=== PATIENT | male | born 1935 | race Caucasian/White ===

== ENCOUNTER 2017-08-24 14:34 | Observation (INO) ==
[2017-08-24] MEDS ORDERED: Naloxone 0.4 MG/ML INJ IVP PRN (19:05)
--- NOTE | 2017-08-24 19:12 | Internal Med History&Physical ---
<Christopher Hall J - Last Filed: 08/24/17 19:07> Date of Encounter: 08/24/17 Time of Encounter: 19:07 Assessment and Plan (1) COPD (chronic obstructive pulmonary disease) Current visit: Yes Status: Acute Appears to be having acute exacerbation of COPD. He was diagnosed with COPD from his PCP but has never had formal pulmonary pathology workup. 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 Reporting progressive shortness of breath for the last month. This appears to be impacting his daily activities, and limiting his functional capacity. My assessment reveals diminished lung sounds with limited air movement, and wheezing bilateral posterior lobes. RRR, S1, S2, remains hemodynamically stable in no respiratory distress resting comfortably on room air, however does appear little dyspneic with ambulation. Pulmonology consult for further assessment and recommendations Solu-Medrol every 8 hours IV push as the patient is wheezing I am additionally adding bronchodilators every 4 hours scheduled Continuous telemetry, continuous SPO2 Serial troponin, TTE to rule out cardiac cause BNP now, chest x-ray now CBC and BMP Qualifiers: COPD type: chronic bronchitis Chronic bronchitis type: unspecified Qualified Code(s): J42 - Unspecified chronic bronchitis (2) Hypoxia Current visit: Yes Status: Acute Was hypoxic at [facility] with ambulation. See plan above (3) HTN (hypertension) Current visit: Yes Status: Acute History of essential hypertension. Review of blood pressure well at [facility] reveals elevated systolic blood pressure. Multiple readings greater than 150 systolic. However, at this time. He remained stable. Continue lisinopril hydrochlorothiazide at home dose. Continue to trend blood pressure and add adjunct therapy as needed Qualifiers: Hypertension type: essential hypertension Qualified Code(s): I10 - Essential (primary) hypertension (4) HLD (hyperlipidemia) Current visit: Yes Status: Acute Continue atorvastatin at home dose Qualifiers: Hyperlipidemia type: pure hypercholesterolemia Qualified Code(s): E78.00 - Pure hypercholesterolemia, unspecified; E78.0 - Pure hypercholesterolemia (5) DVT prophylaxis Current visit: Yes Status: Acute Heparin 5000 units SC twice a day Internal Medicine - H&P: HPI Chief complaint: Dyspnea Admitted From: Home Plans for Post Hospital Care: Home History of present illness: Mr. Townsend is a 82 year old male PMH of emphysema, COPD, HTN, HLD. Patient reports he has no cardiac history. Presents as a transfer from [facility]. Patient has concerns for increasing shortness of breath at rest which worsens with exertion for approximately one month. During this time he does admit to a dry nonproductive cough but denies any other URI symptoms. Denies fever, chills, night sweats, chest pain, abdominal pain, lower extremity swelling or pain. However, he does admit to some weight loss and parosmia. He was hypoxic upon arrival at [facility] and had a workup which included CTA chest x-ray, troponin and EKG which were all unremarkable. There initially were going to send him home, but they had him ambulate prior to discharge on room air and he became hypoxic. The patient denies having any formal pulmonology evaluation or any recent cardiac workup. Past Med Surg Social Fam HX - Past Medical History Medical history: COPD, hyperlipidemia, hypertension Psychiatric history: anxiety - Social History Smoking Status: Former smoker Packs per day: 1 Smokeless Tobacco Status: No Alcohol use: none Drug use: none - Family History Father Living Status: Age at : 94 Cause of : "old age" Mother Hx Family Endocrine Disorder: Yes (Diabetes) Internal Medicine - H&P: Meds Aspirin [Lo-Dose Aspirin EC] 81 mg PO DAILY 08/24/17 [History] Atorvastatin [Lipitor] 20 mg PO HS 08/24/17 [History] Lisinopril-HCTZ 20-12.5 [Prinzide 20-12.5] 1 tab PO DAILY 08/24/17 [History] 3 Allergy/AdvReac Type Severity Reaction Status Date / Time No Known Allergies Allergy Verified 08/25/17 12:59 All Systems PM: A 10-system review of systems was performed and is negative for pertinent findings except as documented above in the HPI. - Constitutional Constitutional: no chills, no fever(s), no night sweats - EENT Eyes: no change in vision, no discharge, no pain, no photophobia Ears: no ear discharge, no ear pain, no tinnitus Nose, mouth and throat: no dysphagia, no nasal discharge, no neck pain, no sore throat - Cardiovascular Cardiovascular ROS IM: dyspnea, no chest pain, no diaphoresis, no lightheadedness, no palpitations, no syncope - Respiratory Respiratory: dyspnea, no cough, no wheezing, no excessive phlegm production - Gastrointestinal Gastrointestinal: no abdominal pain, no diarrhea, no hematemesis, no hematochezia, no melena, no nausea, no vomiting - Musculoskeletal Musculoskeletal ROS IM: no numbness, no tingling - Integumentary Integumentary IM: no rash, no unusual bruising - Neurological Neurological ROS: no confusion, no convulsions, no focal weakness, no numbness, no tingling, no tremor(s) - Hematologic/Lymphatic Hematologic/Lymphatic: no easy bruising - Head Head exam: Present: atraumatic, normocephalic - Eye Eye exam: Present: PERRL, conjuntiva pink, sclera anicteric Pupils: Present: PERRL - Neck Neck exam general surgery: Present: supple, trachea midline. Absent: lymphadenopathy - Respiratory Respiratory exam: Present: decreased breath sounds, CTAB, prolonged expiratory phase, wheezes (Bilateral posterior lobes). Absent: accessory muscle use, chest wall tenderness, rales, respiratory distress, rhonchi, tachypnea - Cardiovascular Cardiovascular exam: Present: RRR, +S1, +S2. Absent: diastolic murmur, gallop, rubs, systolic murmur - GI/Abdominal GI/Abdominal exam: Present: normal bowel sounds, soft, no peritoneal signs. Absent: distended, tenderness - Extremities Exam Extremities exam: Present: warm, radial pulses palpable and symmetrical. Absent : calf tenderness, cyanotic, pedal edema - Neurological Exam Neurological exam: Present: CN II-XII intact, oriented X3, no focal deficits. Absent: pronater drift, facial droop, speech deficit - Skin Skin exam: Present: dry, intact Internal Med - H&P Results - Diagnostic Studies CT scan - chest Status: image reviewed by me Additional comments: Centrilobular emphysema, no lymphadenopathy noted, no additional cardiopulmonary abnormalities noted <Rosie Last - Last Filed: 08/25/17 13:26> Date of Encounter: 08/25/17 Internal Medicine - H&P: HPI History of present illness: Mr. Townsend is a 82 year old male All Systems PM: A 10-system review of systems was performed and is negative for pertinent findings except as documented above in the HPI. - Constitutional Vitals: Temp Pulse Resp BP Pulse Ox 98.2 F 70 16 126/58 97 08/25/17 10:42 08/25/17 10:42 08/25/17 10:42 08/25/17 10:42 08/25/17 10:42 Internal Med - H&P Results - Labs CBC & Chem 7: 08/25/17 03:13 08/25/17 03:13 Labs: Short CBC 08/25/17 Range/Units 03:13 WBC 7.2 (4.3-11.1) K/mcL Hgb 10.7 L (12.9-16.9) g/dL Hct 33.4 L (37.5-50.1) % Plt Count 205 (140-400) K/mcL Neutrophils # 5.1 (1.6-8.9) K/mcL BMP 08/25/17 03:13 Sodium 137 Potassium 4.1 Chloride 105 Carbon Dioxide 25 BUN 19 Creatinine 0.92 Glucose 97 Calcium 9.6 Cardiac Enzymes 08/24/17 08/25/17 Range/Units 19:01 04:55 Troponin I 0.01 0.01 (0-0.03) ng/mL Liver Function 08/25/17 Range/Units 03:13 Total Bilirubin 0.6 (0.2-1.2) mg/dL AST 16 (5-34) Units/L ALT 15 (0-55) Units/L Alkaline Phosphatase 58 (38-126) Units/L Albumin 3.7 (3.5-5.0) g/dL - Impressions ITS Impressions Chest X-Ray 08/24/17 18:53 IMPRESSION: Similar findings suggesting emphysema. No focal airspace consolidation or pulmonary vascular congestion. D/ / Jasiel Covarrubias / Jasiel Covarrubias Interpreting Provider: Jasiel Covarrubias - Attending Attestation I examined this patient and my medical decision-making was reviewed with the Resident Physician. I agree with the documented findings, disposition and treatment plan as described except to the extent set forth below.
[2017-08-24] MEDS ORDERED: Ipratropium/Albuterol Neb 3 ML ONE (19:44)
[2017-08-24] MEDS: Ipratropium/Albuterol Neb 3 ML IH SCH ×2 (20:39→23:47)
[2017-08-24] MEDS: Aspirin 81 MG TAB.CHEW PO SCH (21:51)
[2017-08-25] MEDS: Ipratropium/Albuterol Neb 3 ML IH SCH ×6 (03:32→23:48)
[2017-08-25 04:20] LABS: Basophils % 0.6 %; Eosinophils # 0.2 K/mcL (0.0-0.6); Eosinophils % 3.2 %; Hematocrit 33.4 % (37.5-50.1); Hemoglobin 10.7 g/dL (12.9-16.9); Immature Granulocytes % 0.1 % (0-4); Lymphocytes # 1.2 K/mcL (0.6-4.6); Mean Corpuscular Hemoglobin 29.2 pg (28.0-33.3); Mean Platelet Volume 10.5 fL (9.4-12.4); Monocytes # 0.7 K/mcL (0.0-1.3); Monocytes % 9.3 %; Neutrophils # 5.1 K/mcL (1.6-8.9); Platelet Count 205 K/mcL (140-400); Red Blood Count 3.67 M/mcL (4.19-5.50); Red Cell Distribution Width 13.2 % (11.5-14.5); Segmented Neutrophils % 70.8 %
[2017-08-25 04:39] LABS: Alanine Aminotransferase 15 Units/L (0-55); Albumin 3.7 g/dL (3.5-5.0); Albumin/Globulin Ratio 1.1 (1.1-2.2); Alkaline Phosphatase 58 Units/L (38-126); Aspartate Amino Transferase 16 Units/L (5-34); BUN/Creatinine Ratio 21 (6-26); Bilirubin,Total 0.6 mg/dL (0.2-1.2); Blood Urea Nitrogen 19 mg/dL (8-26); Calcium 9.6 mg/dL (8.6-10.8); Carbon Dioxide 25 mEq/L (19-29); Chloride 105 mEq/L (98-109); Globulin 3.4 g/dL (2.4-3.5); Glucose 97 mg/dL (70-99); Osmolality,Calculated 286 (280-300); Potassium 4.1 mEq/L (3.5-4.5); Sodium 137 mEq/L (136-145); Total Protein 7.1 g/dL (6.0-8.3); eGFR For African Americans > 60 (> 60); eGFR For Non-African Americans > 60 (> 60)
[2017-08-25] MEDS: *HR* Heparin 5,000 UNIT/ML VIAL SQ SCH ×2 (05:05→16:47)
[2017-08-25] MEDS: Lisinopril-HCTZ 20-12.5mg TABLET PO SCH (08:38)
[2017-08-25] MEDS: Aspirin 81 MG TAB.CHEW PO SCH (08:38)
[2017-08-25] MEDS ORDERED: Chloraseptic Spray 177 ML BOTTLE MM PRN (09:39)
--- NOTE | 2017-08-25 10:34 | Pulmonology Consult Note ---
Date of Encounter: 08/25/17 Time of Encounter: 09:50 Assessment and Plan (1) COPD with exacerbation Current Visit: Yes Status: Acute This is a pleasant gentleman who is presenting with worsening dyspnea and according to him he was not on any bronchodilators and is never been diagnosed with COPD is feeling better now with current treatment. His chest x-ray and with his history this is very suggestive of COPD exacerbation and is on appropriate treatment with systemic steroids and bronchodilators and I added Symbicort to his treatment. Patient is to be evaluated for oxygen with 6 minute walk before his discharge. I feel his IV steroids can be transitioned to oral and can be discharged home and follow-up as outpatient in about 4-6 weeks. Patient will need pulmonary function test as outpatient and they believe pulmonary rehabilitation will be very useful for him. Thank very much for consultation. History of Present Illness Consult date: 08/25/17 Requesting physician: Christopher Hall Reason for consult: COPD Chief complaint: Dyspnea History of present illness: This is a pleasant 82-year-old male with significant history of smoking who was transferred from [facility] due to dyspnea. Patient stated he was never diagnosed with COPD and he is not on oxygen or inhalers. Patient stated he has worsening of his dyspnea at rest and exertion for about one month now and he also has nonproductive cough and wheezing. Patient never had pulmonary function tests according to him. Patient had a chest x-ray done which was suggestive of emphysema. Patient was found to be hypoxic and had workup done with CTA at [place] and I am not able to review dose images at this time. Past Med Surg Social Fam HX - Past Medical History Medical history: COPD, hyperlipidemia, hypertension Psychiatric history: anxiety - Social History Smoking Status: Former smoker Packs per day: 1 Smokeless Tobacco Status: No Alcohol use: none Drug use: none - Family History Father Living Status: Age at : 94 Cause of : "old age" Mother Hx Family Endocrine Disorder: Yes (Diabetes) Medications and Allergies Aspirin [Lo-Dose Aspirin EC] 81 mg PO DAILY 08/24/17 [History] Atorvastatin [Lipitor] 20 mg PO HS 08/24/17 [History] Lisinopril-HCTZ 20-12.5 [Prinzide 20-12.5] 1 tab PO DAILY 08/24/17 [History] 3 Allergy/AdvReac Type Severity Reaction Status Date / Time No Known Allergies Allergy Verified 08/24/17 18:17 All Systems: A 10-system review of systems was performed and is negative for pertinent findings except as documented above in the HPI. Physical Examination Vital Signs: Vital Signs, Last 4 Hours Resp Pulse Ox 08/25/17 08:10 16 98 Please refer to the nursing notes regarding complete vital signs. General appearance: no acute distress Eyes: nonicteric ENT: oropharynx moist Mallampati (class): 2 Neck: supple, no lymphadenopathy Effort: normal Inspection: hyperextended Auscultation: bilateral: diminished breath sounds, egophony Percussion: bilateral: not dull Cardiovascular: regular rate and rhythm Gastrointestinal: normoactive bowel sounds, non-distended Extremities: no cyanosis, no edema normal mental status, non-focal exam mood appropriate Results - Laboratory Findings CBC and BMP: 08/25/17 03:13 08/25/17 03:13 Abnormal lab findings: Abnormal lab results RBC 3.67 M/mcL (4.19-5.50) L 08/25/17 03:13 Hgb 10.7 g/dL (12.9-16.9) L 08/25/17 03:13 Hct 33.4 % (37.5-50.1) L 08/25/17 03:13 - Diagnostic Findings Chest x-ray: report reviewed, image reviewed - Clinical Findings Intake & Output: Intake & Output 08/24/17 08/25/17 08/25/17 23:59 07:59 15:59 Intake Total 240 / 240 Balance 240 / 240 Weight 69.082 kg Consult Discharge Plan - Plan Referrals: Teofilo Salas ELECTROMECHANICAL ENGINEER [Primary Care Provider] -
[2017-08-25] MEDS: Budesonide/Formoterol 160/4.5 MDI IH SCH ×2 (11:37→20:17)
[2017-08-25] MEDS ORDERED: MethylPREDNISolone 40 MG/ML VIAL IVP SCH ×2 (12:32→21:00)
--- NOTE | 2017-08-25 12:32 | Internal Med Progress Note ---
Date of Encounter: 08/25/17 Time of Encounter: 12:20 - Assessment and plan (1) COPD with exacerbation Current Visit: Yes Status: Acute Assessment and plan: Continue systemic steroids bronchodilator support pulm on board and consultation appreciated O2 supplementation will need O2 qualification testing prior to discharge f/u 2D echo to rule out any cardiac etiology contributing to his presentation monitor O2 sat, o2 sat goal: 88-92% (2) HTN (hypertension) Current Visit: Yes Status: Chronic Assessment and plan: BP within acceptable range continue home meds Qualifiers: Hypertension type: essential hypertension Qualified Code(s): I10 - Essential (primary) hypertension (3) HLD (hyperlipidemia) Current Visit: Yes Status: Chronic Assessment and plan: continue statin therapy Qualifiers: Hyperlipidemia type: pure hypercholesterolemia Qualified Code(s): E78.00 - Pure hypercholesterolemia, unspecified; E78.0 - Pure hypercholesterolemia (4) DVT prophylaxis Current Visit: Yes Status: Acute Assessment and plan: Heparin SQ - Subjective Interval history: Patient seen and examined with family present at bedside. Pt reports of being in no distress at rest however even with minimal ambulation without the oxygen he is in significant respiratory distress. Reports of not smoking for the last 3 weeks, however has history of smoking over 1ppd x 60+ years. - Constitutional Vitals: Temp Pulse Resp BP Pulse Ox 98.2 F 70 16 126/58 97 08/25/17 10:42 08/25/17 10:42 08/25/17 10:42 08/25/17 10:42 08/25/17 10:42 General appearance: Present: cooperative, A&O X 3, no acute distress, answers questions appropriately - Head Head exam: Present: atraumatic, normocephalic - Eye Eye exam: Present: conjuntiva pink, sclera anicteric - Respiratory Respiratory exam: Present: decreased breath sounds. Absent: accessory muscle use, respiratory distress, wheezes, tachypnea - Cardiovascular Cardiovascular exam: Present: RRR, +S1, +S2. Absent: diastolic murmur, gallop, rubs, systolic murmur - GI/Abdominal GI/Abdominal exam: Present: normal bowel sounds, soft, no peritoneal signs. Absent: distended, tenderness - Extremities Exam Extremities exam: Present: warm, radial pulses palpable and symmetrical. Absent : calf tenderness, cyanotic, pedal edema - Neurological Exam Neurological exam: Present: alert, oriented X3 - Psychiatric Psychiatric exam: Present: normal affect, normal mood Internal Medicine: Result - Labs CBC & Chem 7: 08/25/17 03:13 08/25/17 03:13 Labs: Short CBC 08/25/17 Range/Units 03:13 WBC 7.2 (4.3-11.1) K/mcL Hgb 10.7 L (12.9-16.9) g/dL Hct 33.4 L (37.5-50.1) % Plt Count 205 (140-400) K/mcL Neutrophils # 5.1 (1.6-8.9) K/mcL BMP 08/25/17 03:13 Sodium 137 Potassium 4.1 Chloride 105 Carbon Dioxide 25 BUN 19 Creatinine 0.92 Glucose 97 Calcium 9.6 Cardiac Enzymes 08/24/17 08/25/17 Range/Units 19:01 04:55 Troponin I 0.01 0.01 (0-0.03) ng/mL Liver Function 08/25/17 Range/Units 03:13 Total Bilirubin 0.6 (0.2-1.2) mg/dL AST 16 (5-34) Units/L ALT 15 (0-55) Units/L Alkaline Phosphatase 58 (38-126) Units/L Albumin 3.7 (3.5-5.0) g/dL - Impressions Impressions Chest X-Ray 08/24/17 18:53 IMPRESSION: Similar findings suggesting emphysema. No focal airspace consolidation or pulmonary vascular congestion. D/ / Jasiel Covarrubias / Jasiel Covarrubias Interpreting Provider: Jasiel Covarrubias Consult Discharge Plan - Plan Referrals: Teofilo Salas PROJECT SPECIALIST [Primary Care Provider] -
[2017-08-25] MEDS: MethylPREDNISolone 40 MG/ML VIAL IVP SCH (13:11)
[2017-08-26] MEDS: MethylPREDNISolone 40 MG/ML VIAL IVP SCH (00:17)
[2017-08-26] MEDS: Ipratropium/Albuterol Neb 3 ML IH SCH ×4 (04:17→15:50)
[2017-08-26 04:33] LABS: Basophils % 0.1 %; Hematocrit 33.1 % (37.5-50.1); Hemoglobin 10.4 g/dL (12.9-16.9); Immature Granulocytes % 0.6 % (0-4); Lymphocytes # 0.4 K/mcL (0.6-4.6); Lymphocytes % 2.9 %; Mean Corpuscular HGB Conc 31.4 g/dL (31.6-35.5); Mean Corpuscular Hemoglobin 28.3 pg (28.0-33.3); Mean Corpuscular Volume 89.9 fL (83.0-100.0); Mean Platelet Volume 10.5 fL (9.4-12.4); Monocytes % 1.2 %; Platelet Count 228 K/mcL (140-400); Red Blood Count 3.68 M/mcL (4.19-5.50); Red Cell Distribution Width 13.2 % (11.5-14.5); Segmented Neutrophils % 95.2 %
[2017-08-26 04:34] LABS: Monocytes # 0.1 K/mcL (0.0-1.3); Neutrophils # 11.4 K/mcL (1.6-8.9)
[2017-08-26] MEDS: *HR* Heparin 5,000 UNIT/ML VIAL SQ SCH (05:16)
[2017-08-26 05:20] LABS: BUN/Creatinine Ratio 28 (6-26); Carbon Dioxide 20 mEq/L (19-29); Chloride 105 mEq/L (98-109); Potassium 4.3 mEq/L (3.5-4.5); Sodium 135 mEq/L (136-145); eGFR For African Americans > 60 (> 60)
[2017-08-26 05:21] LABS: Calcium 9.3 mg/dL (8.6-10.8); Glucose 155 mg/dL (70-99); Magnesium 2.1 mg/dL (1.6-2.6); Osmolality,Calculated 290 (280-300); Phosphorous 3.9 mg/dL (2.3-4.7); eGFR For Non-African Americans > 60 (> 60)
[2017-08-26 05:22] LABS: Blood Urea Nitrogen 31 mg/dL (8-26)
[2017-08-26] MEDS: Budesonide/Formoterol 160/4.5 MDI IH SCH (07:57)
--- NOTE | 2017-08-26 08:34 | Pulmonology Progress Note ---
Date of Encounter: 08/26/17 Time of Encounter: 08:30 Assessment and Plan (1) COPD with exacerbation Status: Acute Patient is almost back to baseline , patient has qualified for home O2 told him we will reassess him for exercise O2 needs when he comes to the clinic in 6 weeks . Spoke with Nurse to walk him before send him home . COMPREHENSIVE ADVISOR working Home O2 for discharge send him home on steroid taper , GURPREET prn and ICS/LABA follow up in Pulmonary in 6 weeks . Patient verbalized understanding. Subjective Principal diagnosis: COPD exacerbation Interval history: 82 year old male is here COPD exacerbation patient says he is back to his baseline he is doing lot better wants to go home today ,he qualified for home O2 , his cough and sputum production , denies any chest pain or tightness . Objective PUL Vital signs: Last Vital Signs Temp 98.2 F 08/26/17 06:44 Pulse 72 08/26/17 06:44 Resp 18 08/26/17 07:58 BP 161/68 08/26/17 06:44 Pulse Ox 93 08/26/17 07:58 Auscultation: bilateral: clear Results - Laboratory Findings CBC and BMP: 08/26/17 04:00 08/26/17 04:00 Abnormal lab findings: Abnormal lab results WBC 12.0 K/mcL (4.3-11.1) H D 08/26/17 04:00 RBC 3.68 M/mcL (4.19-5.50) L 08/26/17 04:00 Hgb 10.4 g/dL (12.9-16.9) L 08/26/17 04:00 Hct 33.1 % (37.5-50.1) L 08/26/17 04:00 MCHC 31.4 g/dL (31.6-35.5) L 08/26/17 04:00 Neutrophils # 11.4 K/mcL (1.6-8.9) H 08/26/17 04:00 Lymphocytes # 0.4 K/mcL (0.6-4.6) L 08/26/17 04:00 Sodium 135 mEq/L (136-145) L 08/26/17 04:00 BUN 31 mg/dL (8-26) H D 08/26/17 04:00 BUN/Creatinine Ratio 28 (6-26) H 08/26/17 04:00 Glucose 155 mg/dL (70-99) H 08/26/17 04:00 - Clinical Findings Intake & Output: Intake & Output 08/25/17 08/26/17 08/26/17 23:59 07:59 15:59 Output Total 350 / 350 200 / 200 Balance -350 / -350 -200 / -200 Weight 69.804 kg Consult Discharge Plan - Plan Instructions: Prednisone (By mouth), Using Oxygen at Home (DC), Chronic Obstructive Pulmonary Disease (DC), Chronic Hypertension (DC) Additional Instructions: Please follow up with your primary care physician within five days after your discharge from the hospital. Please follow up with pulmonology within four to five weeks after your discharge from the hospital. Continue Prednisone as prescribed. Symbicort 1puff twice a day has been added to your home meds Albuterol inh is prescribed as needed for shortness of breath. Resume all other medications as prescribed by your primary care physician. Referrals: Rohan Mccauley MD [Partnered Physician] - 10/03/17 3:15 pm Teofilo Salas CNP [Primary Care Provider] - 09/06/17 11:00 am Prescriptions: Albuterol Sulfate [Albuterol Inhaler] 1 puff IH Q4HR PRN #1 hfa.aer.ad PRN Reason: Shortness Of Breath/Wheezing Budesonide/Formoterol 160/4.5 [Symbicort 160/4.5] 2 puff IH BIDR #1 inhaler predniSONE [PredniSONE] 40 mg PO DAILY #5 tablet
[2017-08-26] MEDS ORDERED: predniSONE 20 MG TABLET PO SCH (09:00)
[2017-08-26] MEDS ORDERED: Aspirin Enteric Coated 81 MG Tablet PO SCH (09:00)
[2017-08-26] MEDS: Lisinopril-HCTZ 20-12.5mg TABLET PO SCH (09:18)
--- NOTE | 2017-08-26 14:58 | Discharge Summary ---
Date of Encounter: 08/26/17 Time of Encounter: 14:58 - Discharge Diagnosis (1) COPD with exacerbation Priority: Primary Status: Acute (2) HTN (hypertension) Priority: Secondary Status: Chronic Qualifiers: Hypertension type: essential hypertension Qualified Code(s): I10 - Essential (primary) hypertension (3) HLD (hyperlipidemia) Priority: Secondary Status: Chronic Qualifiers: Hyperlipidemia type: pure hypercholesterolemia Qualified Code(s): E78.00 - Pure hypercholesterolemia, unspecified; E78.0 - Pure hypercholesterolemia (4) DVT prophylaxis Priority: Secondary Status: Acute - Discharge Medications Prescriptions: Albuterol Sulfate [Albuterol Inhaler] 1 puff IH Q4HR PRN #1 hfa.aer.ad PRN Reason: Shortness Of Breath/Wheezing Budesonide/Formoterol 160/4.5 [Symbicort 160/4.5] 2 puff IH BIDR #1 inhaler predniSONE [PredniSONE] 40 mg PO DAILY #5 tablet Home Medications: Aspirin [Lo-Dose Aspirin EC] 81 mg PO DAILY 08/24/17 [History] Atorvastatin [Lipitor] 20 mg PO HS 08/24/17 [History] Lisinopril-HCTZ 20-12.5 [Prinzide 20-12.5] 1 tab PO DAILY 08/24/17 [History] Albuterol Sulfate [Albuterol Inhaler] 1 puff IH Q4HR PRN #1 hfa.aer.ad 08/26/17 [Rx] Budesonide/Formoterol 160/4.5 [Symbicort 160/4.5] 2 puff IH BIDR #1 inhaler [Rx] predniSONE [PredniSONE] 40 mg PO DAILY #5 tablet 08/26/17 [Rx] Allergies/Adverse Reactions: 3 Allergy/AdvReac Type Severity Reaction Status Date / Time No Known Allergies Allergy Verified 08/25/17 12:59 Procedures/tests Complete & Pending: Procedures Performed prior 72 hours Category Date Time Status EKG [ECG 12 lead ECG] [ECG] Routine Y 08/24/17 19:13 Completed EV echocardiogram Routine Y 08/24/17 18:47 Completed Date of admission: 08/24/17 17:41 Primary care physician: Teofilo Salas CNP Consults: 08/24/17 18:47 Consult to Pulmonology [CONS] Routine Consulting Provider: [facility] [place] Reason for Consult: Hypoxia, unremarkable CTA, CXR, no prior cardiac history ; further evaluation and recommendations Time Notified: 18:51 Call Completed: Yes Discharging clinician: Isha Eli Anticipated date of discharge: 08/26/17 - Patient Status Disposition: Home, Self-Care Condition: Good Functional capacity at discharge: independent ambulation Overall status at discharge: patient is back to baseline - Discharge Instructions Follow Up With: Teofilo Salas CNP [Primary Care Provider] - 09/06/17 11:00 am Additional Instructions: Please follow up with your primary care physician within five days after your discharge from the hospital. Please follow up with pulmonology within four to five weeks after your discharge from the hospital. Continue Prednisone as prescribed. Symbicort 1puff twice a day has been added to your home meds Albuterol inh is prescribed as needed for shortness of breath. Resume all other medications as prescribed by your primary care physician. - Diet and Activity Activity: wear oxygen at all times, wear oxygen at night Diet: low fat, low cholesterol, low salt diet Hospital course: Mr. Townsend is a 82 year old male with PMH of HTN, tobacco abuse who was admitted for COPD exacerbation. He was started on IV steroids, bronchodilators, and O2 support. He responded appropriately to therapy. He was evaluated by pulmonary and outpatient PFTs are recommended. Pt remained O2 dependent and underwent O2 qualification testing. He qualified for home oxygen support. He is currently stable for discharge, pending home oxygen arrangement. He will be discharged with oral steroids, and follow up with PCP and pulm. - Time Spent with Patient Total time spent providing and/or coordinating discharge services: Less than 30 minutes - Constitutional Vitals: Temp Pulse Resp BP Pulse Ox 97.8 F 104 18 119/67 92 08/26/17 11:17 08/26/17 11:17 08/26/17 11:17 08/26/17 11:17 08/26/17 14:19 General appearance: Present: cooperative, A&O X 3, no acute distress, answers questions appropriately - Head Head exam: Present: atraumatic, normocephalic - Eye Eye exam: Present: conjuntiva pink, sclera anicteric - Respiratory Respiratory exam: Absent: accessory muscle use, rales, respiratory distress, wheezes - Cardiovascular Cardiovascular exam: Present: RRR, +S1, +S2. Absent: diastolic murmur, gallop, rubs, systolic murmur - GI/Abdominal GI/Abdominal exam: Present: normal bowel sounds, soft, no peritoneal signs. Absent: distended, tenderness - Extremities Exam Extremities exam: Present: warm, radial pulses palpable and symmetrical. Absent : calf tenderness, cyanotic, pedal edema - Neurological Exam Neurological exam: Present: alert, oriented X3 - Psychiatric Psychiatric exam: Present: normal affect, normal mood
[2017-08-26 15:07] VITALS: BP 159/63
[2017-08-26] MEDS: Aspirin 81 MG TAB.CHEW PO SCH (15:38)
--- NOTE | 2017-08-27 09:49 | Electrocardiograph Report ---
[place] [id number] Test Date: 2017-08-24 Pat Name: Harman Townsend Department: 113 Room: 3B Gender: M Marketing Services Vice President: : 1935 Requested By: Christopher Hall Order Number: [id number] Reading MD: Dami Jensen DO Measurements Intervals [place] Rate: 55 P: 74 TX: 154 QRS: 65 QRSD: 96 T: 71 QT: 407 QTc: 397 Interpretive Statements SINUS BRADYCARDIA Electronically Signed On 08-27-2017 9:47:18 EST by Dami Jensen DO
== END 2017-08-26 17:38 | disposition home or self-care (01) ==
LOC: 3BNU → SUATTDRO 17:41
PROVIDERS: ADMIT Nurse Practitioner; ATTEND Internal Medicine

== ENCOUNTER 2019-10-08 10:21 | Inpatient (IN) ==
[2019-10-08 11:04] LABS: Hematocrit 21.3 % (37.5-50.1); Hemoglobin 6.4 g/dL (12.9-16.9); Mean Corpuscular Hemoglobin 25.2 pg (28.0-33.3); Mean Corpuscular Volume 83.9 fL (83.0-100.0); Mean Platelet Volume 8.9 fL (9.4-12.4); Platelet Count 546 K/mcL (140-400); Red Blood Count 2.54 M/mcL (4.19-5.50); Red Cell Distribution Width 17.9 % (11.5-14.5); White Blood Count 12.4 K/mcL (4.3-11.1)
[2019-10-08] MEDS ORDERED: Pantoprazole 40 MG VIAL IVP ONE (13:12)
[2019-10-08] MEDS ORDERED: Naloxone 0.4 MG/ML INJ IVP PRN (14:34)
[2019-10-08] MEDS ORDERED: Ondansetron 4 MG/2 ML VIAL IVP PRN (14:34)
[2019-10-08] MEDS: 0.9 % Sodium Chloride 1,000 ML IVC SCH (15:32)
[2019-10-08 15:33] LABS: BUN/Creatinine Ratio 25 (6-26); Blood Urea Nitrogen 24 mg/dL (8-23); Calcium 8.4 mg/dL (8.6-10.3); Carbon Dioxide 24 mEq/L (23-29); Chloride 102 mEq/L (98-107); Glucose 132 mg/dL (70-105); Osmolality,Calculated 284 (280-300); Sodium 134 mEq/L (136-145); eGFR For African Americans > 60 (> 60); eGFR For Non-African Americans > 60 (> 60)
[2019-10-08] MEDS ORDERED: 0.9 % Sodium Chloride 250 ML ONE (15:50)
[2019-10-08] MEDS ORDERED: Ipratropium/Albuterol Neb 3 ML IH PRN (15:58)
[2019-10-08] MEDS ORDERED: SODIUM CHLORIDE/NAHCO3/KCL/PEG 4,000 ML SOLN.RECON PO ONE (17:00)
[2019-10-08] MEDS: Pantoprazole 40 MG VIAL IVP SCH (17:05)
[2019-10-08] MEDS: Budesonide/Formoterol 160/4.5 1 PUFF INH IH SCH (20:22)
[2019-10-09 00:32] LABS: Basophils % 0.3 %; Eosinophils # 0.2 K/mcL (0.0-0.6); Eosinophils % 1.8 %; Hematocrit 25.9 % (37.5-50.1); Hemoglobin 7.8 g/dL (12.9-16.9); Immature Granulocytes % 0.4 % (0-4); Lymphocytes % 8.9 %; Mean Corpuscular HGB Conc 30.1 g/dL (31.6-35.5); Mean Corpuscular Hemoglobin 25.6 pg (28.0-33.3); Mean Corpuscular Volume 84.9 fL (83.0-100.0); Mean Platelet Volume 9.2 fL (9.4-12.4); Monocytes # 0.9 K/mcL (0.0-1.3); Monocytes % 8.2 %; Neutrophils # 9.2 K/mcL (1.6-8.9); Platelet Count 440 K/mcL (140-400); Red Blood Count 3.05 M/mcL (4.19-5.50); Red Cell Distribution Width 18.6 % (11.5-14.5); Segmented Neutrophils % 80.4 %; White Blood Count 11.4 K/mcL (4.3-11.1)
[2019-10-09 00:41] LABS: BUN/Creatinine Ratio 25 (6-26); Blood Urea Nitrogen 21 mg/dL (8-23); Calcium 8.2 mg/dL (8.6-10.3); Carbon Dioxide 21 mEq/L (23-29); Chloride 106 mEq/L (98-107); Glucose 100 mg/dL (70-105); Magnesium 1.7 mg/dL (1.6-2.6); Osmolality,Calculated 281 (280-300); Phosphorous 3.1 mg/dL (2.7-4.5); Sodium 134 mEq/L (136-145); eGFR For African Americans > 60 (> 60); eGFR For Non-African Americans > 60 (> 60)
[2019-10-09] MEDS: 0.9 % Sodium Chloride 1,000 ML IVC SCH (03:25)
[2019-10-09 04:12] LABS: Basophils % 0.4 %; Eosinophils # 0.3 K/mcL (0.0-0.6); Eosinophils % 2.7 %; Hematocrit 25.7 % (37.5-50.1); Hemoglobin 7.9 g/dL (12.9-16.9); Immature Granulocytes % 0.3 % (0-4); Lymphocytes # 0.9 K/mcL (0.6-4.6); Lymphocytes % 8.8 %; Mean Corpuscular HGB Conc 30.7 g/dL (31.6-35.5); Mean Corpuscular Volume 84.5 fL (83.0-100.0); Mean Platelet Volume 9.1 fL (9.4-12.4); Monocytes # 0.9 K/mcL (0.0-1.3); Monocytes % 8.9 %; Neutrophils # 8.2 K/mcL (1.6-8.9); Platelet Count 435 K/mcL (140-400); Red Blood Count 3.04 M/mcL (4.19-5.50); Red Cell Distribution Width 18.8 % (11.5-14.5); Segmented Neutrophils % 78.9 %; White Blood Count 10.3 K/mcL (4.3-11.1)
[2019-10-09] MEDS: Pantoprazole 40 MG VIAL IVP SCH ×2 (06:35→17:57)
[2019-10-09] MEDS: Budesonide/Formoterol 160/4.5 1 PUFF INH IH SCH ×2 (07:51→22:44)
[2019-10-09] MEDS ORDERED: Lidocaine -MPF 2% 2 ML VIAL ONE (09:06)
[2019-10-09] MEDS ORDERED: *HR* Propofol 200 MG/20 ML VIAL IVP ONE (09:06)
[2019-10-09] MEDS ORDERED: Propofol 500 MG/50 ML INFUS..BTL ONE (09:07)
[2019-10-09] MEDS ORDERED: *HR* EPINEPHrine 1 MG/10 ML SYRINGE INTRATRACH ONE (09:20)
[2019-10-09] MEDS ORDERED: *HR* EPINEPHrine 1 MG/10 ML SYRINGE ONE (09:25)
[2019-10-09] MEDS ORDERED: Isovue-370 500 ML BOTTLE IVP ONE ×2 (10:10→16:48)
[2019-10-09] MEDS ORDERED: ISOVUE-370 100 ML INFUS..BTL PO ONE (10:33)
[2019-10-09 17:00] LABS: % Iron Saturation 7 % (20-55); Iron 12 mcg/dL (65-175); Transferrin 130 mg/dL (203-362)
[2019-10-09 17:04] LABS: Alanine Aminotransferase 24 Units/L (7-52); Albumin 2.6 g/dL (3.5-5.7); Albumin/Globulin Ratio 0.9 (1.1-2.2); Alkaline Phosphatase 80 Units/L (34-104); Aspartate Amino Transferase 23 Units/L (13-39); BUN/Creatinine Ratio 19 (6-26); Bilirubin,Total 0.6 mg/dL (0.3-1.0); Blood Urea Nitrogen 15 mg/dL (8-23); Calcium 8.1 mg/dL (8.6-10.3); Carbon Dioxide 20 mEq/L (23-29); Chloride 104 mEq/L (98-107); Globulin 2.9 g/dL (2.4-3.5); Glucose 80 mg/dL (70-105); Lactate Dehydrogenase 116 Units/L (140-271); Osmolality,Calculated 274 (280-300); Potassium 4.1 mEq/L (3.5-5.1); Sodium 132 mEq/L (136-145); Total Protein 5.5 g/dL (6.4-8.9); eGFR For African Americans > 60 (> 60); eGFR For Non-African Americans > 60 (> 60)
[2019-10-09 17:30] LABS: Folate > 22.3 ng/mL (3.0-16.0); Vitamin B12 1354 pg/mL (250-1100)
[2019-10-09] MEDS ORDERED: 0.9 % Sodium Chloride 1,000 ML IVC SCH (18:28)
[2019-10-09] MEDS: Sucralfate 1 GM TABLET PO SCH (21:43)
[2019-10-09] MEDS: Ipratropium/Albuterol Neb 3 ML IH SCH (22:44)
[2019-10-10] MEDS ORDERED: 0.9 % Sodium Chloride 500 ML IVC ONE (00:20)
[2019-10-10] MEDS: Ipratropium/Albuterol Neb 3 ML IH SCH ×4 (04:02→21:36)
[2019-10-10 05:17] LABS: Basophils % 0.3 %; Eosinophils # 0.3 K/mcL (0.0-0.6); Eosinophils % 2.5 %; Hematocrit 25.7 % (37.5-50.1); Hemoglobin 7.9 g/dL (12.9-16.9); Immature Granulocytes % 0.6 % (0-4); Lymphocytes # 1.1 K/mcL (0.6-4.6); Lymphocytes % 9.7 %; Mean Corpuscular HGB Conc 30.7 g/dL (31.6-35.5); Mean Corpuscular Hemoglobin 25.8 pg (28.0-33.3); Mean Platelet Volume 9.1 fL (9.4-12.4); Monocytes # 0.9 K/mcL (0.0-1.3); Neutrophils # 8.5 K/mcL (1.6-8.9); Platelet Count 418 K/mcL (140-400); Red Blood Count 3.06 M/mcL (4.19-5.50); Red Cell Distribution Width 18.6 % (11.5-14.5); Segmented Neutrophils % 78.9 %; White Blood Count 10.8 K/mcL (4.3-11.1)
[2019-10-10 05:23] LABS: BUN/Creatinine Ratio 13 (6-26); Blood Urea Nitrogen 11 mg/dL (8-23); Calcium 7.6 mg/dL (8.6-10.3); Carbon Dioxide 18 mEq/L (23-29); Chloride 107 mEq/L (98-107); Glucose 95 mg/dL (70-105); Magnesium 1.6 mg/dL (1.6-2.6); Osmolality,Calculated 275 (280-300); Phosphorous 3.2 mg/dL (2.7-4.5); Potassium 3.8 mEq/L (3.5-5.1); Sodium 133 mEq/L (136-145); eGFR For African Americans > 60 (> 60); eGFR For Non-African Americans > 60 (> 60)
[2019-10-10] MEDS: Pantoprazole 40 MG VIAL IVP SCH ×2 (06:24→17:53)
[2019-10-10] MEDS: *HR* Heparin 5,000 UNIT/ML VIAL SQ SCH ×2 (06:24→17:53)
[2019-10-10] MEDS: Sucralfate 1 GM TABLET PO SCH ×4 (08:05→22:12)
[2019-10-10] MEDS ORDERED: metroNIDAZOLE 500 MG TABLET PO ONE ×3 (13:00→20:00)
[2019-10-10] MEDS: Budesonide/Formoterol 160/4.5 1 PUFF INH IH SCH ×2 (15:21→21:36)
[2019-10-11 02:32] LABS: Basophils % 0.3 %; Eosinophils # 0.2 K/mcL (0.0-0.6); Eosinophils % 2.4 %; Hematocrit 25.7 % (37.5-50.1); Hemoglobin 7.8 g/dL (12.9-16.9); Immature Granulocytes % 0.4 % (0-4); Lymphocytes # 0.8 K/mcL (0.6-4.6); Lymphocytes % 7.8 %; Mean Corpuscular HGB Conc 30.4 g/dL (31.6-35.5); Mean Corpuscular Hemoglobin 25.9 pg (28.0-33.3); Mean Corpuscular Volume 85.4 fL (83.0-100.0); Mean Platelet Volume 9.5 fL (9.4-12.4); Monocytes # 0.9 K/mcL (0.0-1.3); Monocytes % 9.3 %; Neutrophils # 7.8 K/mcL (1.6-8.9); Platelet Count 370 K/mcL (140-400); Red Blood Count 3.01 M/mcL (4.19-5.50); Red Cell Distribution Width 18.3 % (11.5-14.5); Segmented Neutrophils % 79.8 %; White Blood Count 9.8 K/mcL (4.3-11.1)
[2019-10-11 02:57] LABS: BUN/Creatinine Ratio 13 (6-26); Blood Urea Nitrogen 10 mg/dL (8-23); Calcium 7.8 mg/dL (8.6-10.3); Carbon Dioxide 19 mEq/L (23-29); Chloride 107 mEq/L (98-107); Glucose 106 mg/dL (70-105); Magnesium 1.5 mg/dL (1.6-2.6); Osmolality,Calculated 277 (280-300); Phosphorous 2.9 mg/dL (2.7-4.5); Potassium 3.8 mEq/L (3.5-5.1); Sodium 134 mEq/L (136-145); eGFR For African Americans > 60 (> 60); eGFR For Non-African Americans > 60 (> 60)
[2019-10-11] MEDS: Ipratropium/Albuterol Neb 3 ML IH SCH ×4 (04:29→22:50)
[2019-10-11] MEDS: *HR* Heparin 5,000 UNIT/ML VIAL SQ SCH (05:03)
[2019-10-11] MEDS: Pantoprazole 40 MG VIAL IVP SCH ×2 (05:05→17:13)
[2019-10-11] MEDS ORDERED: Isovue-370 500 ML BOTTLE IVP ONE (08:40)
[2019-10-11] MEDS ORDERED: Iron Sucrose Complex 250 MG in 0.9 % Sodium Chloride 250 ML IVPB SCH (09:00)
[2019-10-11] MEDS: Sucralfate 1 GM TABLET PO SCH ×3 (09:34→16:54)
[2019-10-11] MEDS: Budesonide/Formoterol 160/4.5 1 PUFF INH IH SCH ×2 (10:01→22:50)
[2019-10-11] MEDS ORDERED: *HR* Propofol 200 MG/20 ML VIAL IVP ONE (10:30)
[2019-10-11] MEDS ORDERED: Lidocaine -MPF 2% 2 ML VIAL ONE ×3 (10:30→10:42)
[2019-10-11] MEDS ORDERED: *HR* FentaNYL (PF) 100 MCG/2 ML VIAL ONE (10:30)
[2019-10-11] MEDS ORDERED: Acetaminophen IV 1,000 MG/100 ML INFUS..BTL ONE (10:35)
[2019-10-11] MEDS ORDERED: Famotidine 20 MG/2 ML VIAL ONE (10:35)
[2019-10-11] MEDS ORDERED: *HR* Rocuronium Bromide 50 MG/5 ML VIAL ONE ×2 (10:45→11:59)
[2019-10-11] MEDS ORDERED: *HR* PHENYLEPHRINE 1,000 MCG/10 ML SYRINGE IVP ONE (11:15)
[2019-10-11] MEDS ORDERED: CefOXitin 2,000 MG VIAL ONE (11:23)
[2019-10-11] MEDS ORDERED: *HR* HYDROMORPHONE 2 MG/ML VIAL ONE (11:40)
[2019-10-11] MEDS ORDERED: Ondansetron 4 MG/2 ML VIAL IVP ONE (13:34)
[2019-10-11] MEDS ORDERED: *HR* Labetalol 20 MG/4 ML SYRINGE IVP PRN (13:34)
[2019-10-11] MEDS ORDERED: Ondansetron 4 MG/2 ML VIAL IVP PRN (14:26)
[2019-10-11] MEDS ORDERED: Naloxone 0.4 MG/ML INJ IVP PRN (14:26)
[2019-10-11] MEDS ORDERED: Ipratropium/Albuterol Neb 3 ML IH PRN (14:26)
[2019-10-11] MEDS: 0.9 % Sodium Chloride 1,000 ML IVC SCH (17:12)
[2019-10-11] MEDS: Acetaminophen IV 1,000 MG/100 ML INFUS..BTL IVPB SCH (17:12)
[2019-10-12] MEDS: Acetaminophen IV 1,000 MG/100 ML INFUS..BTL IVPB SCH ×4 (01:05→16:55)
[2019-10-12] MEDS: Ipratropium/Albuterol Neb 3 ML IH SCH ×4 (03:23→22:46)
[2019-10-12 04:39] LABS: BUN/Creatinine Ratio 11 (6-26); Basophils % 0.1 %; Blood Urea Nitrogen 12 mg/dL (8-23); Carbon Dioxide 19 mEq/L (23-29); Chloride 107 mEq/L (98-107); Glucose 185 mg/dL (70-105); Hematocrit 34.6 % (37.5-50.1); Immature Granulocytes % 0.5 % (0-4); Lymphocytes # 0.2 K/mcL (0.6-4.6); Lymphocytes % 1.7 %; Magnesium 2.5 mg/dL (1.6-2.6); Mean Corpuscular HGB Conc 31.2 g/dL (31.6-35.5); Mean Corpuscular Hemoglobin 26.6 pg (28.0-33.3); Mean Corpuscular Volume 85.2 fL (83.0-100.0); Mean Platelet Volume 9.4 fL (9.4-12.4); Monocytes # 0.5 K/mcL (0.0-1.3); Monocytes % 3.2 %; Neutrophils # 13.3 K/mcL (1.6-8.9); Osmolality,Calculated 287 (280-300); Phosphorous 4.8 mg/dL (2.7-4.5); Platelet Count 475 K/mcL (140-400); Potassium 4.2 mEq/L (3.5-5.1); Red Blood Count 4.06 M/mcL (4.19-5.50); Red Cell Distribution Width 17.8 % (11.5-14.5); Segmented Neutrophils % 94.5 %; Sodium 136 mEq/L (136-145); White Blood Count 14.1 K/mcL (4.3-11.1); eGFR For African Americans > 60 (> 60); eGFR For Non-African Americans > 60 (> 60)
[2019-10-12 04:41] LABS: Hemoglobin 10.8 g/dL (12.9-16.9)
[2019-10-12] MEDS: *HR* Heparin 5,000 UNIT/ML VIAL SQ SCH ×2 (06:35→16:55)
[2019-10-12] MEDS: Pantoprazole 40 MG VIAL IVP SCH ×2 (06:35→16:55)
[2019-10-12] MEDS: 0.9 % Sodium Chloride 1,000 ML IVC SCH ×2 (06:37→15:37)
[2019-10-12 07:58] LABS: Alanine Aminotransferase 26 Units/L (7-52); Albumin 2.5 g/dL (3.5-5.7); Albumin/Globulin Ratio 0.9 (1.1-2.2); Alkaline Phosphatase 87 Units/L (34-104); Aspartate Amino Transferase 31 Units/L (13-39); Bilirubin,Direct 0.3 mg/dL (0.0-0.2); Bilirubin,Indirect 0.3 mg/dL (0.0-1.0); Bilirubin,Total 0.6 mg/dL (0.3-1.0); Globulin 2.9 g/dL (2.4-3.5); Total Protein 5.4 g/dL (6.4-8.9)
[2019-10-12] MEDS: *HR* OxyCODONE Immed Rel 5 MG TABLET PO PRN ×2 (09:59→14:51)
[2019-10-12] MEDS: Budesonide/Formoterol 160/4.5 1 PUFF INH IH SCH ×2 (10:45→22:46)
[2019-10-12] MEDS ORDERED: *HR* Metoprolol 5 MG/5 ML VIAL IVP ONE (13:37)
[2019-10-12] MEDS: Sucralfate 1 GM TABLET PO SCH ×2 (14:50→20:31)
[2019-10-12] MEDS: *HR* Metoprolol 5 MG/5 ML VIAL IVP SCH (16:56)
[2019-10-13] MEDS: *HR* Metoprolol 5 MG/5 ML VIAL IVP SCH ×4 (00:15→18:19)
[2019-10-13] MEDS: *HR* OxyCODONE Immed Rel 5 MG TABLET PO PRN ×2 (00:16→08:04)
[2019-10-13] MEDS: Acetaminophen IV 1,000 MG/100 ML INFUS..BTL IVPB SCH ×4 (00:22→18:19)
[2019-10-13] MEDS: Ipratropium/Albuterol Neb 3 ML IH SCH ×5 (03:48→22:50)
[2019-10-13] MEDS: Pantoprazole 40 MG VIAL IVP SCH ×2 (06:46→18:18)
[2019-10-13] MEDS: *HR* Heparin 5,000 UNIT/ML VIAL SQ SCH ×2 (06:46→18:19)
[2019-10-13] MEDS: Sucralfate 1 GM TABLET PO SCH ×4 (06:48→21:34)
[2019-10-13] MEDS: Budesonide/Formoterol 160/4.5 1 PUFF INH IH SCH ×2 (10:00→22:50)
[2019-10-13 10:26] LABS: Mean Platelet Volume 9.7 fL (9.4-12.4)
[2019-10-13 10:27] LABS: Basophils % 0.1 %; Hemoglobin 10.4 g/dL (12.9-16.9); Immature Granulocytes % 1.3 % (0-4); Lymphocytes # 0.2 K/mcL (0.6-4.6); Lymphocytes % 0.6 %; Mean Corpuscular HGB Conc 31.5 g/dL (31.6-35.5); Mean Corpuscular Hemoglobin 26.9 pg (28.0-33.3); Mean Corpuscular Volume 85.5 fL (83.0-100.0); Monocytes # 0.9 K/mcL (0.0-1.3); Neutrophils # 29.3 K/mcL (1.6-8.9); Platelet Count 457 K/mcL (140-400); Red Blood Count 3.86 M/mcL (4.19-5.50); Red Cell Distribution Width 18.6 % (11.5-14.5)
[2019-10-13 10:32] LABS: White Blood Count 30.8 K/mcL (4.3-11.1)
[2019-10-13 10:49] LABS: BUN/Creatinine Ratio 13 (6-26); Blood Urea Nitrogen 18 mg/dL (8-23); Carbon Dioxide 20 mEq/L (23-29); Chloride 110 mEq/L (98-107); Glucose 64 mg/dL (70-105); Magnesium 2.3 mg/dL (1.6-2.6); Osmolality,Calculated 290 (280-300); Platelet Estimate Normal (Normal); Potassium 4.2 mEq/L (3.5-5.1); Sodium 140 mEq/L (136-145); eGFR For African Americans > 60 (> 60); eGFR For Non-African Americans 51 (> 60)
[2019-10-13] MEDS: 0.9 % Sodium Chloride 1,000 ML IVC SCH (12:53)
[2019-10-13] MEDS ORDERED: D5% in Water 500 ML IVC SCH (13:00)
[2019-10-13 13:05] LABS: Alanine Aminotransferase 24 Units/L (7-52); Albumin 2.5 g/dL (3.5-5.7); Albumin/Globulin Ratio 0.9 (1.1-2.2); Alkaline Phosphatase 85 Units/L (34-104); Amylase 548 Units/L (29-103); Aspartate Amino Transferase 28 Units/L (13-39); Bilirubin,Direct 0.1 mg/dL (0.0-0.2); Bilirubin,Indirect 0.2 mg/dL (0.0-1.0); Bilirubin,Total 0.3 mg/dL (0.3-1.0); Globulin 2.7 g/dL (2.4-3.5); Lipase 455 Units/L (11-82); Total Protein 5.2 g/dL (6.4-8.9)
[2019-10-13 13:14] LABS: Bilirubin,Urine Small (Negative); Blood,Urine Small (Negative); Clarity,Urine Turbid (Clear); Color,Urine Dark Yellow (Yellow); Glucose,Urine (UA) Normal (Normal); Ketones,Urine Negative (Negative); Leukocyte Esterase,Urine Trace (Negative); Nitrite,Urine Negative (Negative); PH,Urine 5.5 pH Units (5.0-8.0); Protein,Urine 30 mg/dL (Neg-Trace); Specific Gravity,Urine > 1.030 (1.010-1.025); Urobilinogen,Urine Normal (Normal)
[2019-10-13] MEDS ORDERED: D5% in Water 1,000 ML IVC SCH (13:30)
[2019-10-13 13:32] LABS: Granular Casts,Urine Moderate per lpf (None Seen); Squamous Epithelial Cell,Urine Few per lpf (None-Few)
[2019-10-13 13:33] LABS: Amorphous Sediment,Urine Moderate per hpf (Few); Bacteria,Urine Many per hpf (None-Few); RBC,Urine 15-30 per hpf (0-3)
[2019-10-13] MEDS: Vancomycin Oral Soln 125 MG/2.5 ML UDC PO SCH ×3 (13:54→21:34)
[2019-10-13] MEDS: Piperacillin/Tazobactam 3.375 GM in 0.9 % Sodium Chloride Mini Bag 100 ML IVPB SCH (16:16)
[2019-10-14] MEDS: *HR* Metoprolol 5 MG/5 ML VIAL IVP SCH ×4 (00:24→18:45)
[2019-10-14] MEDS: Acetaminophen IV 1,000 MG/100 ML INFUS..BTL IVPB SCH ×4 (00:24→18:45)
[2019-10-14] MEDS: Piperacillin/Tazobactam 3.375 GM in 0.9 % Sodium Chloride Mini Bag 100 ML IVPB SCH ×3 (00:25→18:44)
[2019-10-14] MEDS ORDERED: *HR* Dextrose 50 % in Water (Syg) 50 ML SYRINGE IVP ONE ×3 (01:49→12:17)
[2019-10-14 03:55] LABS: Lymphocytes % 1.5 %
[2019-10-14 03:56] LABS: Basophils % 0.1 %; Eosinophils % 0.1 %; Hemoglobin 8.7 g/dL (12.9-16.9); Immature Granulocytes % 1.8 % (0-4); Lymphocytes # 0.4 K/mcL (0.6-4.6); Mean Corpuscular Hemoglobin 26.7 pg (28.0-33.3); Mean Platelet Volume 9.3 fL (9.4-12.4); Monocytes # 1.1 K/mcL (0.0-1.3); Monocytes % 3.6 %; Neutrophils # 27.2 K/mcL (1.6-8.9); Platelet Count 345 K/mcL (140-400); Red Blood Count 3.26 M/mcL (4.19-5.50); Red Cell Distribution Width 18.5 % (11.5-14.5); Segmented Neutrophils % 92.9 %; White Blood Count 29.3 K/mcL (4.3-11.1)
[2019-10-14 04:07] LABS: BUN/Creatinine Ratio 16 (6-26); Blood Urea Nitrogen 22 mg/dL (8-23); Calcium 7.6 mg/dL (8.6-10.3); Carbon Dioxide 19 mEq/L (23-29); Chloride 106 mEq/L (98-107); Glucose 53 mg/dL (70-105); Magnesium 2.1 mg/dL (1.6-2.6); Osmolality,Calculated 277 (280-300); Phosphorous 4.1 mg/dL (2.7-4.5); Potassium 4.3 mEq/L (3.5-5.1); Sodium 133 mEq/L (136-145); eGFR For African Americans > 60 (> 60); eGFR For Non-African Americans 50 (> 60)
[2019-10-14 04:08] LABS: Amylase 245 Units/L (29-103); Lipase 147 Units/L (11-82)
[2019-10-14 04:12] LABS: Anisocytosis 1+ (Not Present); Platelet Estimate Normal (Normal)
[2019-10-14 04:16] LABS: Alpha 2 Globulin (PEP) 1.08 g/dL (0.48-1.05); Beta Globulin (PEP) 0.74 g/dL (0.48-1.10)
[2019-10-14] MEDS: Ipratropium/Albuterol Neb 3 ML IH SCH ×4 (04:27→22:04)
[2019-10-14] MEDS ORDERED: Dextrose Gel 15 GM/37.5 ML TUBE PO PRN (05:59)
[2019-10-14] MEDS ORDERED: *HR* Dextrose 50 % in Water (Syg) 50 ML SYRINGE IVP PRN (05:59)
[2019-10-14] MEDS ORDERED: D5% in Water 1,000 ML IVC PRN (05:59)
[2019-10-14] MEDS: D10% in Water 500 ML IVC SCH ×2 (06:34→18:43)
[2019-10-14] MEDS: Pantoprazole 40 MG VIAL IVP SCH ×2 (06:34→18:46)
[2019-10-14] MEDS: 0.9 % Sodium Chloride 1,000 ML IVC SCH ×2 (06:37→09:42)
[2019-10-14] MEDS: *HR* Heparin 5,000 UNIT/ML VIAL SQ SCH ×2 (07:04→18:45)
[2019-10-14] MEDS ORDERED: Albumin 25% 12.5gm/50mL 12.5 GM/50 ML IV.SOLN IVPB ONE (07:27)
[2019-10-14] MEDS: Sucralfate 1 GM TABLET PO SCH ×4 (08:38→21:28)
[2019-10-14] MEDS: Vancomycin Oral Soln 125 MG/2.5 ML UDC PO SCH ×4 (08:44→21:29)
[2019-10-14] MEDS: Budesonide/Formoterol 160/4.5 1 PUFF INH IH SCH ×2 (09:19→22:04)
[2019-10-14 09:48] LABS: Immunoglobulin G 859 mg/dL (768-1632); Immunoglobulin M 24 mg/dL (35-263)
[2019-10-14 09:49] LABS: IFE Reflexed IFE Done; Immunoglobulin A 408 mg/dL (68-408)
[2019-10-14] MEDS: Metoclopramide 10 MG/2 ML VIAL IVP SCH ×2 (13:14→18:46)
[2019-10-14 13:36] LABS: Thyroid Stimulating Hormone 1.579 mcIU/mL (0.340-5.600)
[2019-10-14] MEDS: Vancomycin 500 MG, Sodium Chloride IRRigation 250 ML RC SCH ×3 (14:03→21:29)
[2019-10-14] MEDS: D5% in 0.45% NACL 1,000 ML IVC SCH (18:42)
[2019-10-15] MEDS: *HR* Metoprolol 5 MG/5 ML VIAL IVP SCH ×4 (01:13→17:43)
[2019-10-15] MEDS: Metoclopramide 10 MG/2 ML VIAL IVP SCH ×4 (01:13→17:43)
[2019-10-15] MEDS: Piperacillin/Tazobactam 3.375 GM in 0.9 % Sodium Chloride Mini Bag 100 ML IVPB SCH ×3 (01:13→16:08)
[2019-10-15] MEDS: Acetaminophen IV 1,000 MG/100 ML INFUS..BTL IVPB SCH ×3 (01:18→05:40)
[2019-10-15] MEDS: Ipratropium/Albuterol Neb 3 ML IH SCH ×4 (03:25→22:27)
[2019-10-15] MEDS: D5% in 0.45% NACL 1,000 ML IVC SCH ×2 (04:04→19:52)
[2019-10-15 04:34] LABS: Mean Platelet Volume 9.4 fL (9.4-12.4)
[2019-10-15 04:35] LABS: Hematocrit 29.5 % (37.5-50.1); Mean Corpuscular HGB Conc 30.5 g/dL (31.6-35.5); Mean Corpuscular Hemoglobin 26.7 pg (28.0-33.3); Mean Corpuscular Volume 87.5 fL (83.0-100.0); Platelet Count 416 K/mcL (140-400); Red Blood Count 3.37 M/mcL (4.19-5.50); Red Cell Distribution Width 18.5 % (11.5-14.5); White Blood Count 27.8 K/mcL (4.3-11.1)
[2019-10-15 04:36] LABS: BUN/Creatinine Ratio 19 (6-26); Blood Urea Nitrogen 21 mg/dL (8-23); Calcium 7.8 mg/dL (8.6-10.3); Carbon Dioxide 17 mEq/L (23-29); Chloride 108 mEq/L (98-107); Glucose 54 mg/dL (70-105); Magnesium 1.7 mg/dL (1.6-2.6); Osmolality,Calculated 273 (280-300); Potassium 3.5 mEq/L (3.5-5.1); Sodium 131 mEq/L (136-145); eGFR For African Americans > 60 (> 60); eGFR For Non-African Americans > 60 (> 60)
[2019-10-15 04:37] LABS: Amylase 67 Units/L (29-103); Lipase 45 Units/L (11-82)
[2019-10-15] MEDS: *HR* Heparin 5,000 UNIT/ML VIAL SQ SCH ×2 (05:39→17:43)
[2019-10-15] MEDS: Pantoprazole 40 MG VIAL IVP SCH ×2 (05:40→17:43)
[2019-10-15 05:54] LABS: Lymphocytes # 1.1 K/mcL (0.6-4.6); Monocytes # 1.7 K/mcL (0.0-1.3); Platelet Estimate Normal (Normal)
[2019-10-15 05:55] LABS: Anisocytosis 1+ (Not Present)
[2019-10-15] MEDS ORDERED: Aminoglycoside Consult 1 EACH MC ONE (08:33)
[2019-10-15] MEDS: Sucralfate 1 GM TABLET PO SCH ×4 (08:52→21:12)
[2019-10-15] MEDS: Vancomycin Oral Soln 125 MG/2.5 ML UDC PO SCH ×4 (08:52→21:12)
[2019-10-15] MEDS ORDERED: Fluconazole 200 MG/100 ML 200 MG/100 ML BAG IVPB SCH (09:15)
[2019-10-15] MEDS: Vancomycin 500 MG, Sodium Chloride IRRigation 250 ML RC SCH ×4 (09:58→21:13)
[2019-10-15] MEDS ORDERED: Acetaminophen 325 MG TABLET PO PRN (10:26)
[2019-10-15] MEDS ORDERED: *HR* OxyCODONE/APAP 5/325 TABLET PO PRN (10:27)
[2019-10-15] MEDS: Budesonide/Formoterol 160/4.5 1 PUFF INH IH SCH ×2 (10:53→22:27)
[2019-10-15] MEDS ORDERED: Furosemide 20 MG/2 ML VIAL IVP ONE (12:54)
[2019-10-15] MEDS ORDERED: D5% in 0.45% NACL 1,000 ML IVC SCH (13:00)
[2019-10-15 13:49] LABS: Adenovirus Not Detected (Not Detect); Bordetella Pertussis Not Detected (Not Detect); Chlamydophila pneumoniae Not Detected (Not Detect); Coronavirus 229E Not Detected (Not Detect); Coronavirus HKU1 Not Detected (Not Detect); Coronavirus NL63 Not Detected (Not Detect); Coronavirus OC43 Not Detected (Not Detect); Human Metapneumovirus Not Detected (Not Detect); Human Rhinovirus/Enterovirus Not Detected (Not Detect); Influenza A Subtype 2009 H1 Not Detected (Not Detect); Influenza B Not Detected (Not Detect); Mycoplasma pneumoniae Not Detected (Not Detect); Parainfluenza Virus 1 Not Detected (Not Detect); Parainfluenza Virus 2 Not Detected (Not Detect); Parainfluenza Virus 3 Not Detected (Not Detect); Parainfluenza Virus 4 Not Detected (Not Detect); Respiratory Syncytial Virus Not Detected (Not Detect)
[2019-10-15 14:16] LABS: Adenovirus F 40/41 PCR Not detected (Not detect); Astrovirus PCR Not detected (Not detect); C.difficile Toxin A/B Gene PCR Not detected (Not detect); Campylobacter by PCR Not detected (Not detect); Cryptosporidium by PCR Not detected (Not detect); Cyclospora cayetanensis PCR Not detected (Not detect); E. coli O157 by PCR Not detected (Not detect); Entamoeba histolytica PCR Not detected (Not detect); Enteroaggregative E.coli(EAEC) Not detected (Not detect); Enteropathogenic E.coli(EPEC) Not detected (Not detect); Enterotoxigenic E.coli (ETEC) Not detected (Not detect); Giardia lamblia PCR Not detected (Not detect); Norovirus GI/GII PCR Not detected (Not detect); Plesiomonas shigelloides PCR Not detected (Not detect); Rotavirus A PCR Not detected (Not detect); Salmonella PCR Not detected (Not detect); Sapovirus PCR Not detected (Not detect); Shig/EnteroinvasiveE coli EIEC Not detected (Not detect); Shigalike tox-prod E coli STEC Not detected (Not detect); Vibrio PCR Not detected (Not detect); Vibrio cholerae PCR Not detected (Not detect); Yersinia enterocolitica PCR Not detected (Not detect)
[2019-10-15] MEDS: 0.9 % Sodium Chloride 1,000 ML IVC SCH (19:51)
[2019-10-15] MEDS: D10% in Water 500 ML IVC SCH (19:51)
[2019-10-16] MEDS: *HR* Metoprolol 5 MG/5 ML VIAL IVP SCH ×2 (00:36→05:21)
[2019-10-16] MEDS: Metoclopramide 10 MG/2 ML VIAL IVP SCH ×2 (00:36→05:21)
[2019-10-16] MEDS: Piperacillin/Tazobactam 3.375 GM in 0.9 % Sodium Chloride Mini Bag 100 ML IVPB SCH ×4 (00:36→23:41)
[2019-10-16] MEDS: Ipratropium/Albuterol Neb 3 ML IH SCH ×4 (04:18→22:25)
[2019-10-16] MEDS ORDERED: Haloperidol Lactate 5 MG/ML VIAL IVP PRN (04:28)
[2019-10-16] MEDS ORDERED: QUEtiapine Fumarate 25 MG TABLET PO PRN (04:40)
[2019-10-16] MEDS: Pantoprazole 40 MG VIAL IVP SCH (05:21)
[2019-10-16] MEDS: *HR* Heparin 5,000 UNIT/ML VIAL SQ SCH ×2 (05:22→17:30)
[2019-10-16 05:51] LABS: Mean Platelet Volume 9.5 fL (9.4-12.4); Red Cell Distribution Width 18.6 % (11.5-14.5)
[2019-10-16 05:52] LABS: Basophils % 0.2 %; Eosinophils # 0.1 K/mcL (0.0-0.6); Eosinophils % 0.3 %; Hematocrit 28.1 % (37.5-50.1); Hemoglobin 8.3 g/dL (12.9-16.9); Lymphocytes # 0.4 K/mcL (0.6-4.6); Lymphocytes % 1.4 %; Mean Corpuscular HGB Conc 29.5 g/dL (31.6-35.5); Mean Corpuscular Hemoglobin 26.9 pg (28.0-33.3); Mean Corpuscular Volume 90.9 fL (83.0-100.0); Monocytes # 1.1 K/mcL (0.0-1.3); Monocytes % 4.2 %; Platelet Count 367 K/mcL (140-400); Red Blood Count 3.09 M/mcL (4.19-5.50); Segmented Neutrophils % 92.9 %; White Blood Count 26.4 K/mcL (4.3-11.1)
[2019-10-16 05:53] LABS: Basophils # 0.1 K/mcL (0.0-0.2); Neutrophils # 24.5 K/mcL (1.6-8.9)
[2019-10-16 06:03] LABS: Alanine Aminotransferase 27 Units/L (7-52); Albumin 2.4 g/dL (3.5-5.7); Albumin/Globulin Ratio 0.9 (1.1-2.2); Alkaline Phosphatase 96 Units/L (34-104); Aspartate Amino Transferase 32 Units/L (13-39); BUN/Creatinine Ratio 19 (6-26); Bilirubin,Total 0.5 mg/dL (0.3-1.0); Blood Urea Nitrogen 19 mg/dL (8-23); Carbon Dioxide 18 mEq/L (23-29); Chloride 110 mEq/L (98-107); Globulin 2.7 g/dL (2.4-3.5); Glucose 73 mg/dL (70-105); Osmolality,Calculated 287 (280-300); Potassium 3.7 mEq/L (3.5-5.1); Sodium 138 mEq/L (136-145); Total Protein 5.1 g/dL (6.4-8.9); eGFR For African Americans > 60 (> 60); eGFR For Non-African Americans > 60 (> 60)
[2019-10-16 06:10] LABS: Platelet Estimate Normal (Normal)
[2019-10-16] MEDS ORDERED: Furosemide 20 MG/2 ML VIAL IVP ONE ×3 (08:00→14:00)
[2019-10-16] MEDS: Fluconazole 100 MG TABLET PO SCH (08:05)
[2019-10-16] MEDS: Vancomycin Oral Soln 125 MG/2.5 ML UDC PO SCH ×4 (08:05→20:18)
[2019-10-16] MEDS: Sucralfate 1 GM TABLET PO SCH ×4 (08:05→20:17)
[2019-10-16] MEDS ORDERED: Bisacodyl 10 MG RECTAL SUPPOSITORY RC ONE (09:00)
[2019-10-16] MEDS: Budesonide/Formoterol 160/4.5 1 PUFF INH IH SCH ×2 (10:44→22:25)
[2019-10-16] MEDS ORDERED: *HR* Metoprolol 5 MG/5 ML VIAL IVP PRN (11:16)
[2019-10-16] MEDS ORDERED: Haloperidol Lactate 5 MG/ML VIAL IVP ONE (11:27)
[2019-10-16] MEDS: Haloperidol Lactate 5 MG/ML VIAL IVP PRN (20:18)
[2019-10-16] MEDS ORDERED: traZODone 50 MG TABLET PO SCH (21:00)
[2019-10-17] MEDS ORDERED: *HR* Promethazine 25 MG/ML VIAL IVP ONE (00:38)
[2019-10-17] MEDS: Haloperidol Lactate 5 MG/ML VIAL IVP PRN (02:35)
[2019-10-17 02:56] LABS: Basophils % 0.2 %; Eosinophils # 0.2 K/mcL (0.0-0.6); Hematocrit 25.2 % (37.5-50.1); Hemoglobin 7.7 g/dL (12.9-16.9); Immature Granulocytes % 0.6 % (0-4); Lymphocytes # 0.6 K/mcL (0.6-4.6); Lymphocytes % 3.5 %; Mean Corpuscular HGB Conc 30.6 g/dL (31.6-35.5); Mean Corpuscular Hemoglobin 26.7 pg (28.0-33.3); Mean Corpuscular Volume 87.5 fL (83.0-100.0); Mean Platelet Volume 9.4 fL (9.4-12.4); Monocytes % 5.6 %; Neutrophils # 16.5 K/mcL (1.6-8.9); Platelet Count 317 K/mcL (140-400); Red Blood Count 2.88 M/mcL (4.19-5.50); Red Cell Distribution Width 18.7 % (11.5-14.5); Segmented Neutrophils % 89.1 %; White Blood Count 18.5 K/mcL (4.3-11.1)
[2019-10-17 03:12] LABS: BUN/Creatinine Ratio 15 (6-26); Blood Urea Nitrogen 15 mg/dL (8-23); Calcium 7.9 mg/dL (8.6-10.3); Carbon Dioxide 21 mEq/L (23-29); Chloride 114 mEq/L (98-107); Glucose 60 mg/dL (70-105); Osmolality,Calculated 291 (280-300); Potassium 3.3 mEq/L (3.5-5.1); Sodium 141 mEq/L (136-145); eGFR For African Americans > 60 (> 60); eGFR For Non-African Americans > 60 (> 60)
[2019-10-17] MEDS: Ipratropium/Albuterol Neb 3 ML IH SCH ×4 (03:31→22:17)
[2019-10-17] MEDS: *HR* Heparin 5,000 UNIT/ML VIAL SQ SCH ×2 (06:33→17:00)
[2019-10-17] MEDS ORDERED: Potassium Chloride Elixir 20 MEQ/15 ML UDC PO ONE (07:50)
[2019-10-17] MEDS: Fluconazole 100 MG TABLET PO SCH (08:29)
[2019-10-17] MEDS: Sucralfate 1 GM TABLET PO SCH ×4 (08:29→20:29)
[2019-10-17] MEDS: Piperacillin/Tazobactam 3.375 GM in 0.9 % Sodium Chloride Mini Bag 100 ML IVPB SCH ×2 (08:30→16:05)
[2019-10-17] MEDS: Vancomycin Oral Soln 125 MG/2.5 ML UDC PO SCH ×4 (08:31→20:30)
[2019-10-17] MEDS: Budesonide/Formoterol 160/4.5 1 PUFF INH IH SCH ×2 (11:05→22:17)
[2019-10-17] MEDS: QUEtiapine Fumarate 25 MG TABLET PO SCH (20:29)
[2019-10-18] MEDS: Piperacillin/Tazobactam 3.375 GM in 0.9 % Sodium Chloride Mini Bag 100 ML IVPB SCH ×4 (00:33→23:51)
[2019-10-18 03:05] LABS: Basophils % 0.2 %; Eosinophils # 0.2 K/mcL (0.0-0.6); Eosinophils % 1.5 %; Hematocrit 23.8 % (37.5-50.1); Immature Granulocytes % 0.6 % (0-4); Lymphocytes # 0.5 K/mcL (0.6-4.6); Lymphocytes % 3.6 %; Mean Corpuscular HGB Conc 29.4 g/dL (31.6-35.5); Mean Corpuscular Hemoglobin 27.1 pg (28.0-33.3); Mean Corpuscular Volume 92.2 fL (83.0-100.0); Mean Platelet Volume 9.7 fL (9.4-12.4); Monocytes # 0.9 K/mcL (0.0-1.3); Monocytes % 6.6 %; Neutrophils # 11.6 K/mcL (1.6-8.9); Platelet Count 275 K/mcL (140-400); Red Blood Count 2.58 M/mcL (4.19-5.50); Red Cell Distribution Width 19.2 % (11.5-14.5); Segmented Neutrophils % 87.5 %; White Blood Count 13.3 K/mcL (4.3-11.1)
[2019-10-18 03:23] LABS: BUN/Creatinine Ratio 11 (6-26); Blood Urea Nitrogen 10 mg/dL (8-23); Calcium 7.8 mg/dL (8.6-10.3); Carbon Dioxide 21 mEq/L (23-29); Chloride 120 mEq/L (98-107); Glucose 136 mg/dL (70-105); Osmolality,Calculated 299 (280-300); Potassium 3.4 mEq/L (3.5-5.1); Sodium 144 mEq/L (136-145); eGFR For African Americans > 60 (> 60); eGFR For Non-African Americans > 60 (> 60)
[2019-10-18] MEDS: Ipratropium/Albuterol Neb 3 ML IH SCH ×4 (04:25→22:34)
[2019-10-18] MEDS: *HR* Heparin 5,000 UNIT/ML VIAL SQ SCH ×2 (05:16→16:41)
[2019-10-18] MEDS: Vancomycin Oral Soln 125 MG/2.5 ML UDC PO SCH ×4 (07:52→21:13)
[2019-10-18] MEDS: Sucralfate 1 GM TABLET PO SCH ×4 (07:52→21:12)
[2019-10-18] MEDS: Fluconazole 100 MG TABLET PO SCH (07:52)
[2019-10-18] MEDS: Budesonide/Formoterol 160/4.5 1 PUFF INH IH SCH ×2 (10:18→22:34)
[2019-10-18] MEDS ORDERED: 0.9 % Sodium Chloride 250 ML ONE (10:29)
[2019-10-18] MEDS: QUEtiapine Fumarate 25 MG TABLET PO SCH (21:12)
[2019-10-19] MEDS: Ipratropium/Albuterol Neb 3 ML IH SCH ×3 (03:56→15:44)
[2019-10-19 04:58] LABS: Basophils % 0.1 %; Eosinophils # 0.3 K/mcL (0.0-0.6); Eosinophils % 2.6 %; Hemoglobin 8.3 g/dL (12.9-16.9); Immature Granulocytes % 1.2 % (0-4); Lymphocytes # 0.5 K/mcL (0.6-4.6); Lymphocytes % 5.5 %; Mean Corpuscular HGB Conc 30.7 g/dL (31.6-35.5); Mean Corpuscular Hemoglobin 26.5 pg (28.0-33.3); Mean Corpuscular Volume 86.3 fL (83.0-100.0); Mean Platelet Volume 9.5 fL (9.4-12.4); Monocytes # 0.7 K/mcL (0.0-1.3); Neutrophils # 8.2 K/mcL (1.6-8.9); Platelet Count 270 K/mcL (140-400); Red Blood Count 3.13 M/mcL (4.19-5.50); Red Cell Distribution Width 19.2 % (11.5-14.5); Segmented Neutrophils % 83.6 %; White Blood Count 9.9 K/mcL (4.3-11.1)
[2019-10-19 05:14] LABS: BUN/Creatinine Ratio 12 (6-26); Blood Urea Nitrogen 8 mg/dL (8-23); Calcium 7.6 mg/dL (8.6-10.3); Carbon Dioxide 18 mEq/L (23-29); Chloride 120 mEq/L (98-107); Glucose 105 mg/dL (70-105); Osmolality,Calculated 297 (280-300); Potassium 3.5 mEq/L (3.5-5.1); Sodium 144 mEq/L (136-145); eGFR For African Americans > 60 (> 60); eGFR For Non-African Americans > 60 (> 60)
[2019-10-19] MEDS: *HR* Heparin 5,000 UNIT/ML VIAL SQ SCH ×2 (06:02→16:21)
[2019-10-19] MEDS: Piperacillin/Tazobactam 3.375 GM in 0.9 % Sodium Chloride Mini Bag 100 ML IVPB SCH ×2 (08:39→16:21)
[2019-10-19] MEDS: Fluconazole 100 MG TABLET PO SCH (08:40)
[2019-10-19] MEDS: Sucralfate 1 GM TABLET PO SCH ×3 (08:40→16:21)
[2019-10-19] MEDS: Vancomycin Oral Soln 125 MG/2.5 ML UDC PO SCH (08:40)
[2019-10-19 10:31] VITALS: BP 117/80
[2019-10-19] MEDS: Budesonide/Formoterol 160/4.5 1 PUFF INH IH SCH (11:02)
== END 2019-10-19 18:56 | disposition other institution (70) | DRG 329 ==
LOC: EMEROOARM 10:21 → 2ANU 10:21 → SUATTDRO 10-09 16:38 → 3ANU 10-11 11:21
PROVIDERS: ADMIT Internal Medicine; ATTEND Family Medicine